=== PATIENT | male | born 1940 | race Caucasian/White ===

== ENCOUNTER 2018-08-19 09:10 | Emergency (ER) | payer MEDICARE, BC ==
[2018-08-19 09:34] VITALS: BP 118/69; PULSE 85; RESP 16; TEMP 97.7; O2SAT 98; BMI 26.6
--- NOTE | 2018-08-19 15:22 | ED PDOC ---
Arrival/HPI - General Chief Complaint: Finger,Hand,&Wrist Time Seen by Provider: 08/19/18 09:27 Historian: Patient - History of Present Illness Narrative History of Present Illness (Text): 08/19/18 09:30 A 78 year old male with no significant past medical history includes presents to the emergency department complaining of right thumb pain for the past 1 week. Patient reports his skin around the nail became swollen and filled with fluid. Patient notes he is already on antibiotics prescribed by a friend who is a physician. Patient denies any fever, headache, dizziness, or any other complaints. PMD: Dr. Horn Time/Duration: 1 week Symptom Onset: Gradual Symptom Course: Unchanged Activities at Onset: Light Context: Home Past Medical History - Provider Review Nursing Documentation Reviewed: Yes - Cardiac Hx Cardiac Disorders: Yes Hx Hypertension: Yes - Pulmonary Hx Respiratory Disorders: No - Neurological Hx Neurological Disorder: No - HEENT Hx HEENT Disorder: No - Renal Hx Renal Disorder: No - Endocrine/Metabolic Hx Endocrine Disorders: No - Hematological/Oncological Hx Blood Disorders: No - Integumentary Hx Dermatological Disorder: No - Musculoskeletal/Rheumatological Hx Musculoskeletal Disorders: No - Gastrointestinal Hx Gastrointestinal Disorders: No - Genitourinary/Gynecological Hx Genitourinary Disorders: No - Psychiatric Hx Psychophysiologic Disorder: No Hx Substance Use: No - Surgical History Hx Appendectomy: Yes - Anesthesia Hx Anesthesia: No Family/Social History - Physician Review Nursing Documentation Reviewed: Yes Family/Social History: No Known Family HX Smoking Status: Light Smoker < 10 Cigarettes Daily Hx Alcohol Use: No Hx Substance Use: No Allergies/Home Meds Allergies/Adverse Reactions: Allergies No Known Allergies Allergy (Verified 08/19/18 09:27) Review of Systems - Physician Review All systems were reviewed & negative as marked: Yes - Review of Systems Constitutional: absent: Fevers Musculoskeletal: Other (right thumb pain) Neurological: absent: Headache, Dizziness Physical Exam Vital Signs Reviewed: Yes Vital Signs Temp Pulse Resp BP Pulse Ox 08/19/18 09:23 97.7 F 85 16 118/69 98 Temperature: Afebrile Blood Pressure: Normal Pulse: Regular Respiratory Rate: Normal Appearance: Positive for: Well-Appearing, Non-Toxic Pain Distress: Mild Mental Status: Positive for: Alert and Oriented X 3 - Systems Exam Head: Present: Atraumatic, Normocephalic Pupils: Present: PERRL Extroacular Muscles: Present: EOMI Conjunctiva: Present: Normal Respiratory/Chest: Present: Clear to Auscultation, Good Air Exchange. No: Respiratory Distress, Accessory Muscle Use Cardiovascular: Present: Regular Rate and Rhythm, Normal S1, S2. No: Murmurs Upper Extremity: Present: Other (small abcess noted to right thumb by nailbed). No: Cyanosis, Edema Neurological: Present: GCS=15, CN II-XII Intact, Speech Normal Skin: Present: Warm, Dry, Normal Color. No: Rashes Psychiatric: Present: Alert, Oriented x 3, Normal Insight, Normal Concentration Medical Decision Making ED Course and Treatment: 08/19/18 09:30 Impression: 78 year old male presenting to the emergency room complaining of right thumb pain. Plan: -- Incision & Drainage -- Reassess and disposition Progress Notes: 08/19/18 09:35 Procedure: Incision & Drainage Performed by the emergency provider Indication: Abscess Location: right thumb Preparation: The area was prepped and draped in the usual sterile fashion and was cleansed. Procedure: The most fluctuant portion of the abscess was incised with a #11 sc alpel. Approximately 1/2 cc of puss was obtained. The abscess was packed. A dressing was applied by the RN. Post-Procedure: On exam the abscess is notably less fluctuant. The patient tolerated the procedure well, and there were no complications. - Scribe Statement The provider has reviewed the documentation as recorded by the Yunior Bacon All medical record entries made by the Scribe were at my direction and personally dictated by me. I have reviewed the chart and agree that the record accurately reflects my personal performance of the history, physical exam, medical decision making, and the department course for this patient. I have also personally directed, reviewed, and agree with the discharge instructions and disposition. Disposition/Present on Arrival - Present on Arrival Any Indicators Present on Arrival: Yes History of DVT/PE: No History of Uncontrolled Diabetes: No Urinary Catheter: No History of Decub. Ulcer: No History Surgical Site Infection Following: None - Disposition Have Diagnosis and Disposition been Completed?: No Diagnosis: Abscess of finger Disposition: HOME/ ROUTINE Disposition Time: 09:40 Condition: GOOD Discharge Instructions (ExitCare): Skin Abscess Additional Instructions: MAGGI WILCOX, thank you for letting us take care of you today. The emergency medical care you received today was directed at your acute symptoms. If you were prescribed any medication, please fill it and take as directed. It may take several days for your symptoms to resolve. Return to the Emergency Department if your symptoms worsen, do not improve, or if you have any other problems. Please contact your doctor or call one of the physicians/clinics you have been referred to that are listed on the Patient Visit Information form that is included in your discharge packet. Bring any paperwork you were given at discharge with you along with any medications you are taking to your follow up visit. Our treatment cannot replace ongoing medical care by a primary care provider outside of the emergency department. Thank you for allowing the [facility] team to be part of your care today. Follow up with your primary care doctor early next week for re-evaluation and further management. Prescriptions: Ibuprofen [Motrin] 600 mg PO Q6 PRN #20 tab PRN Reason: Pain, Moderate (4-7) Sulfamethoxazole/Trimethoprim [Bactrim DS 800 mg-160 mg] 1 tab PO BID #14 tab Forms: [employer] (Afghan)
== END 2018-08-19 09:52 | disposition home or self-care (01) ==
LOC: ED 09:10
DX: L02.511 Cutaneous abscess of right hand (principal)

== ENCOUNTER 2018-08-24 19:08 | Inpatient (IN) | payer MEDICARE, BC ==
[2018-08-24 19:08] VITALS: BMI 26.6
--- NOTE | 2018-08-24 19:34 | ED PDOC ---
Arrival/HPI - General Chief Complaint: Chest Pain Time Seen by Provider: 08/24/18 19:16 Historian: Patient - History of Present Illness Narrative History of Present Illness (Text): 08/24/18 19:30 Pt is a 78 yo male with a PMH of PR x3 and cardiac stent, hypertension, hyperlipidemia who presents to the ED complaining of 10/10 stabbing left sided chest pain which radiates down his left arm and started 1 hour ago. Pt tried nitro and ASA at home but it did not help. Reports nausea, vomiting, and shortness of breath. Denies diaphoresis. Time/Duration: 1 hour Symptom Onset: Sudden Symptom Course: Worsening Quality: Stabbing Severity Level: 10 Activities at Onset: Rest Context: Sitting Past Medical History - Infectious Disease Hx of Infectious Diseases: None - Cardiac Hx Cardiac Disorders: Yes Hx Hypertension: Yes - Pulmonary Hx Respiratory Disorders: No - Neurological Hx Neurological Disorder: No - HEENT Hx HEENT Disorder: No - Renal Hx Renal Disorder: No - Endocrine/Metabolic Hx Endocrine Disorders: No - Hematological/Oncological Hx Blood Disorders: No - Integumentary Hx Dermatological Disorder: No - Musculoskeletal/Rheumatological Hx Musculoskeletal Disorders: No - Gastrointestinal Hx Gastrointestinal Disorders: No - Genitourinary/Gynecological Hx Genitourinary Disorders: No - Psychiatric Hx Psychophysiologic Disorder: No Hx Substance Use: No - Surgical History Hx Appendectomy: Yes - Anesthesia Hx Anesthesia: No Family/Social History Family/Social History: No Known Family HX Smoking Status: Light Smoker < 10 Cigarettes Daily Hx Alcohol Use: No Hx Substance Use: No Allergies/Home Meds Allergies/Adverse Reactions: Allergies No Known Allergies Allergy (Verified 08/19/18 09:27) Review of Systems - Review of Systems Constitutional: Normal Eyes: Normal ENT: Normal Respiratory: SOB Cardiovascular: Chest Pain Gastrointestinal: Normal Genitourinary Male: Normal Musculoskeletal: Normal Skin: Normal Neurological: Normal Endocrine: Normal Hemo/Lymphatic: Normal Psychiatric: Normal Physical Exam Vital Signs Reviewed: Yes Temperature: Afebrile Blood Pressure: Normal Pulse: Regular Respiratory Rate: Normal Appearance: Positive for: Well-Appearing Mental Status: Positive for: Alert and Oriented X 3 - Systems Exam Head: Present: Atraumatic, Normocephalic Pupils: Present: PERRL Extroacular Muscles: Present: EOMI Mouth: Present: Moist Mucous Membranes Neck: Present: Normal Range of Motion Respiratory/Chest: Present: Clear to Auscultation, Good Air Exchange. No: Respiratory Distress, Accessory Muscle Use Cardiovascular: Present: Regular Rate and Rhythm, Normal S1, S2, Other (chest pain is reproducible to palpation ) Abdomen: Present: Normal Bowel Sounds. No: Tenderness, Distention Upper Extremity: Present: Normal Inspection Lower Extremity: Present: Normal Inspection Neurological: Present: GCS=15, CN II-XII Intact Skin: Present: Warm, Dry, Normal Color Psychiatric: Present: Alert, Oriented x 3 Medical Decision Making ED Course and Treatment: 08/24/18 19:37 CBC CMP Troponin EKG CXR 08/24/18 20:07 signed pt out to night team Pt seen, examined, assessment and plan discussed with Dr Monica Chery PGY1 - RAD Interpretation Radiology Orders: 08/24/18 19:28 CXR [CHEST TWO VIEWS (PA/LAT)] [RAD] Stat - PA / SEEING EYE DOG TRAINER / Resident Statement MD/DO has reviewed & agrees with the documentation as recorded. MD/DO has examined the patient and agrees with the treatment plan. Disposition/Present on Arrival - Present on Arrival Any Indicators Present on Arrival: No History of DVT/PE: No History of Uncontrolled Diabetes: No Urinary Catheter: No History of Decub. Ulcer: No History Surgical Site Infection Following: None - Disposition Have Diagnosis and Disposition been Completed?: Yes Diagnosis: Chest pain Disposition Time: 20:08 Patient Plan: Admission Condition: FAIR Discharge Instructions (ExitCare): Chest Pain (ED) Forms: [employer] (Mongolian)
[2018-08-24 20:34] LABS: BASO # 0.01 K/mm3 (0.0-2.0); BASO % 0.2 % (0.0-3.0); EOS # 0.1 (0.0-0.7); EOS % 1.2 % (1.5-5.0); HEMOGLOBIN 13.9 g/dL (14.0-18.0); LYMPH % 30.7 % (22.0-35.0); MEAN CELL VOLUME 84.4 fl (80.0-105.0); MEAN CORPUSCULAR HEMOGLOBIN 26.7 pg (25.0-35.0); MEAN CORPUSCULAR HGB CONC 31.7 g/dl (31.0-37.0); MONO # 0.3 (0.1-0.6); MONO % 5.3 % (1.0-6.0); RBC 5.2 10^6/uL (3.5-6.1); RED CELL DISTRIBUTION WIDTH 14.5 % (11.5-14.5); WHITE BLOOD COUNT 6.4 10^3/uL (4.5-11.0)
[2018-08-24 22:11] LABS: ALB/GLOB RATIO 1.2 (1.1-1.8); ALBUMIN 3.5 g/dL (3.0-4.8); ALT/SGPT 31 U/L (7-56); AST/SGOT 23 U/L (17-59); BLOOD UREA NITROGEN 15 mg/dL (7-21); CALCIUM 8.6 mg/dL (8.4-10.5); GFR NON-AFRICAN AMERICAN > 60
[2018-08-24 22:22] LABS: B-TYPE NATRIURETIC PEPTIDE 68.8 pg/mL (0-450); TROPONIN I 0.04 ng/mL
--- NOTE | 2018-08-24 22:41 | CP.PCM.HP ---
<Percy Nj - Last Filed: 08/25/18 02:10> History of Present Illness - History of Present Illness History of Present Illness: Percy Nj, PGY1 H&P for Dr. Garibay cc: "left sided cp" Patient is a 78 yo male with a PMH of CO x3 and cardiac stent (placed in 2008), hypertension, hyperlipidemia who presents to the ED complaining of sharp, stabbing left sided chest pain which radiates down his left arm and jaw which started earlier in the evening while he was watching television. Patient states that it felt like the time he had a heart attack. He took nitro and aspirin at home and it did not help him. Patient denies sick contacts or recent travel history. He said he had a diagnostic cath done before at [facility] with Dr. Muniz however he said "only 40% of the vessel was blocked and they didn't want to do anything." Patiet denies denies fever, chills, sob, n/v/d, bowel/bladder changes. No previous inpatient admissions to [facility]. A full 12 point ROS was conducted and unremarkable except as stated above. PMD: Dr. Horn PMHx: CO x3 and cardiac stent (placed in 2008), hypertension, hyperlipidemia PSHx: appendectomy, cataracts Meds: ASA 81mg daily, Lipitor 20mg daily Allergies: NKDA SocialHx: smoker (5 cigarettes a day x55 years), denies EtOH/drug use. FamHx: non-contributory Present on Admission - Present on Admission Any Indicators Present on Admission: No Review of Systems - Review of Systems All systems: reviewed and no additional remarkable complaints except (as per HPI) Past Patient History - Infectious Disease Hx of Infectious Diseases: None - Past Social History Smoking Status: Light Smoker < 10 Cigarettes Daily - CARDIAC Hx Cardiac Disorders: Yes Hx Hypertension: Yes - PULMONARY Hx Respiratory Disorders: No - NEUROLOGICAL Hx Neurological Disorder: No - HEENT Hx HEENT Problems: No - RENAL Hx Chronic Kidney Disease: No - ENDOCRINE/METABOLIC Hx Endocrine Disorders: No - HEMATOLOGICAL/ONCOLOGICAL Hx Blood Disorders: No - INTEGUMENTARY Hx Dermatological Problems: No - MUSCULOSKELETAL/RHEUMATOLOGICAL Hx Musculoskeletal Disorders: No - GASTROINTESTINAL Hx Gastrointestinal Disorders: No - GENITOURINARY/GYNECOLOGICAL Hx Genitourinary Disorders: No - PSYCHIATRIC Hx Psychophysiologic Disorder: No Hx Substance Use: No - SURGICAL HISTORY Hx Appendectomy: Yes - ANESTHESIA Hx Anesthesia: No Meds Allergies/Adverse Reactions: Allergies Allergy/AdvReac Type Severity Reaction Status Date / Time No Known Allergies Allergy Verified 08/19/18 09:27 Physical Exam - Constitutional Appears: No Acute Distress - Head Exam Head Exam: ATRAUMATIC, NORMAL INSPECTION, NORMOCEPHALIC - Eye Exam Eye Exam: EOMI, Normal appearance - ENT Exam ENT Exam: Mucous Membranes Dry - Respiratory Exam Respiratory Exam: Clear to Auscultation Bilateral. absent: Chest Wall Tenderness, Rales, Rhonchi, Wheezes - Cardiovascular Exam Cardiovascular Exam: RRR, +S1, +S2 - GI/Abdominal Exam GI & Abdominal Exam: Normal Bowel Sounds, Soft. absent: Guarding, Rebound, Rigid, Tenderness - Extremities Exam Extremities exam: Positive for: normal capillary refill, normal inspection, pedal pulses present - Back Exam Back exam: NORMAL INSPECTION - Neurological Exam Neurological exam: Alert, CN II-XII Intact, Oriented x3, Reflexes Normal Results - Labs Result Diagrams: 08/24/18 20:24 08/24/18 21:52 Labs: Laboratory Results - last 24 hr 08/24/18 08/24/18 20:24 21:52 WBC 6.4 RBC 5.20 Hgb 13.9 L Hct 43.9 MCV 84.4 MCH 26.7 MCHC 31.7 RDW 14.5 Plt Count 194 MPV 11.0 Neut % (Auto) 62.6 Lymph % (Auto) 30.7 [place] % (Auto) 5.3 Eos % (Auto) 1.2 L Baso % (Auto) 0.2 Lymph # (Auto) 2.0 [place] # (Auto) 0.3 Eos # (Auto) 0.1 Baso # (Auto) 0.01 Absolute Neuts (auto) 4.02 Sodium 130 L Potassium 3.7 Chloride 100 Carbon Dioxide 24 Anion Gap 10 BUN 15 Creatinine 0.8 Est GFR ( Amer) > 60 Est GFR (Non-Af Amer) > 60 Random Glucose 106 Calcium 8.6 Total Bilirubin 0.2 AST 23 ALT 31 Alkaline Phosphatase 71 Troponin I 0.04 NT-Pro-B Natriuret Pep 68.8 Total Protein 6.4 Albumin 3.5 Globulin 2.9 Albumin/Globulin Ratio 1.2 Assessment & Plan - Assessment and Plan (Free Text) Assessment: Patient is a 78 yo male with a PMH of CO x3 and cardiac stent (placed in 2008), hypertension, hyperlipidemia who presents to the ED complaining of sharp, stabbing left sided chest pain which radiates down his left arm and jaw which started earlier in the evening while he was watching television. Plan: Chest Pain 2/2 NSTEMI - Initial troponin was .04; trend serial trops q6 - TSH, Lipid Panel, Hgb A1c - Serial EKG in morning - ASA 325mg and Plavix 300mg loading dose - ASA 81mg daily and Plavix 75mg daily - Beta-pricila, Metoprolol Succinate 12.5mg PO daily with holding parameters - Statin, Atorvastatin 80mg HS - Lovenox SC 1mg/kg q12 - nitroglycerin patch - NPO - Cardiology Consult (Dr. Muniz) - Patient has high cardiac risk factors given history - CXR: no active disease - EKG: NSR, no acute ST/T wave changes Hypovolemic Hyponatremia - Patient dry on exam - Na 130 on admission - urine sodium, serum osmolality, urine osmolality - Will administer IVF NS @ 100 cc/hr x1 bag HLD - Atorvastatin 80mg HS HTN - Metoprolol succinate 12.5mg PO daily ppx: - lovenox Diet: NPO Dispo: Will admit patient to tele. Pending troponins and cardiac recs. Case was discussed and reviewed with Attending Physician, Dr. Garibay <Albert Garibay - Last Filed: 08/26/18 06:44> Results - Vital Signs Recent Vital Signs: Last Vital Signs Temp 98.5 F 08/26/18 05:41 Pulse 67 08/26/18 05:41 Resp 18 08/26/18 05:41 BP 101/58 L 08/25/18 23:16 Pulse Ox 97 08/26/18 05:41 - Labs Result Diagrams: 08/25/18 06:30 08/25/18 06:30 Labs: Laboratory Results - last 24 hr 08/24/18 08/25/18 08/25/18 22:45 06:30 06:30 WBC 5.1 D RBC 5.39 Hgb 14.4 Hct 45.3 MCV 84.0 MCH 26.7 MCHC 31.8 RDW 14.5 Plt Count 196 MPV 11.8 H Sodium 140 Potassium 3.9 Chloride 106 Carbon Dioxide 26 Anion Gap 12 BUN 11 Creatinine 0.7 L Est GFR ( Amer) > 60 Est GFR (Non-Af Amer) > 60 Random Glucose 87 Hemoglobin A1c 6.2 Calcium 9.2 Phosphorus 3.5 Magnesium 2.1 Total Bilirubin 0.7 AST 43 ALT 34 Alkaline Phosphatase 78 Troponin I 3.63 H* D Total Protein 7.0 Albumin 3.8 Globulin 3.2 Albumin/Globulin Ratio 1.2 Urine Osmolality Ur Random Sodium 08/25/18 07:00 WBC RBC Hgb Hct MCV MCH MCHC RDW Plt Count MPV Sodium Potassium Chloride Carbon Dioxide Anion Gap BUN Creatinine Est GFR ( Amer) Est GFR (Non-Af Amer) Random Glucose Hemoglobin A1c Calcium Phosphorus Magnesium Total Bilirubin AST ALT Alkaline Phosphatase Troponin I Total Protein Albumin Globulin Albumin/Globulin Ratio Urine Osmolality 135 L Ur Random Sodium 13 Attending/Attestation - Attestation I have personally seen and examined this patient.: Yes I have fully participated in the care of the patient.: Yes I have reviewed all pertinent clinical information: Yes Notes (Text): 08/26/18 06:44 Seen and examined. Discussed with resident. A&P as above
[2018-08-24 22:59] LABS: HDL CHOLESTEROL 34 mg/dL (29-60)
[2018-08-24 23:09] LABS: LDL CHOLESTEROL 102 mg/dL (0-129)
[2018-08-24] MEDS ORDERED: Sodium Chloride 0.9% 1,000 ML IV SCH (23:45)
[2018-08-25] MEDS: Enoxaparin 60 mg Syringe SC SCH ×3 (00:30→22:47)
[2018-08-25 07:02] LABS: HEMOGLOBIN 14.4 g/dL (14.0-18.0); MEAN CORPUSCULAR HEMOGLOBIN 26.7 pg (25.0-35.0); MEAN CORPUSCULAR HGB CONC 31.8 g/dl (31.0-37.0); MEAN PLATELET VOLUME 11.8 fl (7.0-11.0); RBC 5.39 10^6/uL (3.5-6.1); RED CELL DISTRIBUTION WIDTH 14.5 % (11.5-14.5); WHITE BLOOD COUNT 5.1 10^3/uL (4.5-11.0)
[2018-08-25 07:21] LABS: ALB/GLOB RATIO 1.2 (1.1-1.8); ALBUMIN 3.8 g/dL (3.0-4.8); ALT/SGPT 34 U/L (7-56); AST/SGOT 43 U/L (17-59); BLOOD UREA NITROGEN 11 mg/dL (7-21); CALCIUM 9.2 mg/dL (8.4-10.5); GFR NON-AFRICAN AMERICAN > 60
[2018-08-25 08:15] LABS: TROPONIN I 3.63 ng/mL
[2018-08-25 08:17] LABS: OSMOLALITY,URINE 135 mosm/kg (300-1000)
[2018-08-25] MEDS: Metoprolol Succinate 25 mg XL Tab PO SCH (08:39)
--- NOTE | 2018-08-25 10:49 | RAD ---
Date of service: 08/24/2018 HISTORY: Chest pain COMPARISON: No prior. TECHNIQUE: Chest PA and lateral FINDINGS: LINES AND TUBES: None. LUNG AND PLEURA: The lungs are well inflated and clear. No pleural effusion or pneumothorax. HEART AND MEDIASTINUM: The heart is not enlarged. There is unfolding of the aorta. There are aortic atherosclerotic calcifications present. The hilar and mediastinal contours are within normal limits. SKELETAL STRUCTURES: There is diffuse bone demineralization and multilevel degenerative changes in the spine. VISUALIZED UPPER ABDOMEN: Normal. OTHER FINDINGS: None. IMPRESSION: No active pulmonary disease.
--- NOTE | 2018-08-25 11:28 | CP.PCM.APN ---
Subjective - Date & Time of Evaluation Date of Evaluation: 08/25/18 Time of Evaluation: 09:25 - Subjective Subjective: pt seen and examined at [facility], pt reports feeling better, stats hand worker wants to monitor him , denies cp at this time, pt in NAD Review of Systems - Review of Systems All systems: reviewed and no additional remarkable complaints except Objective - Vital Signs/Intake and Output Vital Signs (last 24 hours): Temp Pulse Resp BP Pulse Ox 98 F 61 20 111/68 97 08/25/18 06:00 08/25/18 08:39 08/25/18 06:00 08/25/18 10:03 08/25/18 06:00 Intake and Output: 08/25/18 08/25/18 06:59 18:59 Intake Total 565 Output Total 0 Balance 565 - Medications Medications: Current Medications Amlodipine Besylate (Norvasc) 2.5 mg PO DAILY [facility] Last Admin: 08/25/18 10:03 Dose: 2.5 mg Aspirin (Ecotrin) 81 mg PO DAILY [facility] Last Admin: 08/25/18 10:03 Dose: 81 mg Atorvastatin Calcium (Lipitor) 80 mg PO HS [facility] Last Admin: 08/25/18 00:21 Dose: 80 mg Enoxaparin Sodium (Lovenox) 60 mg SC Q12H [facility]; Protocol Last Admin: 08/25/18 00:30 Dose: 60 mg Isosorbide Mononitrate (Imdur Er) 30 mg PO DAILY [facility] Last Admin: 08/25/18 10:03 Dose: 30 mg Metoprolol Succinate (Toprol Xl) 12.5 mg PO K [facility] Last Admin: 08/25/18 08:39 Dose: 12.5 mg - Labs Labs: 08/25/18 06:30 08/25/18 06:30 - Head Exam Head Exam: NORMAL INSPECTION, NORMOCEPHALIC - Eye Exam Eye Exam: Normal appearance - Neck Exam Neck Exam: Full ROM - Respiratory Exam Respiratory Exam: Clear to Ausculation Bilateral - Cardiovascular Exam Cardiovascular Exam: +S1, +S2 - GI/Abdominal Exam GI & Abdominal Exam: Soft, Normal Bowel Sounds - Neurological Exam Neurological Exam: Alert, Awake Additional comments: HARRIS - Psychiatric Exam Psychiatric exam: Normal Affect, Normal Mood - Skin Skin Exam: Dry, Intact Assessment and Plan - Assessment and Plan (Free Text) Plan: ITS Impressions Chest X-Ray 08/24/18 19:28 IMPRESSION: No active pulmonary disease. Cardiology / EKG Studies 08/24/18 19:17 EKG [ELECTROCARDIOGRAM] Stat Comment: Reason For Exam: CHEST PAIN 08/25/18 09:55 EKG [ELECTROCARDIOGRAM] Stat Comment: Reason For Exam: elevated troponions A/P 78 yr old male with pmh sig fro [place] with 3 stetns, htn, hld who was adimtted with c/o let side cp with radiation to left arm , trop elevated at 1.94 and 3.63 now cardiology consultation for further mgmt. pt on Lovenox, asa, plavix , BBlocker and statin therapy will follow cardiology recs BPCI/TIC - BPCIA/TIC Educated pt/family on BPCIA/CIR/Med to Bed Programs: N/A Flyers given, including [facility] Beneficiary letter: N/A Pt/family verbalized understanding & agreed to program: N/A (pt in obs status)
--- NOTE | 2018-08-25 11:51 | CARD ---
APPROVED REPORT Date of service: 08/24/2018 EKG Measurement Heart [id number] <Conclusion> Normal sinus rhythm Normal Electrocardiogram
[2018-08-25 13:06] VITALS: RESP 18
--- NOTE | 2018-08-25 19:16 | CARD ---
APPROVED REPORT Date of service: 08/25/2018 EKG Measurement Heart [id number] <Conclusion> Normal sinus rhythm Normal ECG
[2018-08-25] MEDS ORDERED: Nitroglycerin 0.2 mg/hr Top Patch TD SCH (23:30)
[2018-08-26 05:42] VITALS: TEMP 98.5; O2SAT 97
--- NOTE | 2018-08-26 06:12 | CON ---
DATE: 08/25/2018 REQUESTING PHYSICIAN: Maddi Barton MD REASON FOR CONSULTATION: Chest pain. HISTORY OF PRESENT ILLNESS: This is a 78-year-old man with known coronary artery disease, status post remote PCI, admitted with complaints of stabbing chest pain yesterday. He presents to the emergency room and was given sublingual nitroglycerin with no improvement. He is currently seen lying in bed on telemetry. He is currently comfortable. His initial troponin was 0.04, sirena to 1.94 with a followup of 3.63. The patient was admitted with chest pain last month and underwent cardiac catheterization. At that time, he was found to have a patent circumflex artery stent. He had mild diffuse disease elsewhere with evidence of severe disease in several small diagonal branches. Medical therapy was advised. He refused to take aspirin as he felt that it caused an ulcer many years ago. He also did not take a beta-pricila as prescribed as he feels his blood pressure and heart rate are too low at times. He denies any lightheadedness or syncope. PAST MEDICAL HISTORY: His past history is notable for the problems mentioned above. He does have a history of hyperlipidemia and he continues to smoke. MEDICATIONS AT HOME: None. SOCIAL HISTORY: He states he continues to smoke less than a pack per day. He denies alcohol use. FAMILY HISTORY: Both parents are from age-related illness. REVIEW OF SYSTEMS: A 12-point review of systems is otherwise unremarkable. He denies any lightheadedness. PHYSICAL EXAMINATION: GENERAL: He is an elderly man who appears comfortable at the present time. VITAL SIGNS: His blood pressure is 110/60 with pulse of 62, in sinus; respirations are 14; he is afebrile. HEENT: Normocephalic, atraumatic. NECK: Supple. No JVD noted. CHEST: Few scattered rhonchi heard. HEART: PMI in normal position. No pathological murmurs or gallops are noted. ABDOMEN: Soft and nontender with normoactive bowel sounds. EXTREMITIES: No clubbing, cyanosis, or edema. SKIN: Warm and dry. PSYCHIATRIC: Normal mood and affect. NEUROLOGIC: Alert and oriented x3. No gross motor or sensory deficits notable. DIAGNOSTIC DATA: White count is 6.4, hemoglobin and hematocrit 13.9 and 43.9 with platelet count of 194,000. Sodium was initially 130, repeat is 140; potassium 3.7. Hemoglobin A1c 6.2%. BUN and creatinine 15 and 0.8. Troponin as previously mentioned. Electrocardiogram reveals sinus rhythm with no significant ST-T abnormalities. Chest x-ray reveals normal cardiac silhouette with clear lung terrazas. IMPRESSION: 1. Chest pain with elevated troponin. I suspect this is due to diagonal side branch disease, especially given the absence of EKG changes. 2. Coronary artery disease, status post remote percutaneous coronary intervention of left circumflex, stent patent at catheterization last month. 3. Persistent tobacco abuse. 4. Noncompliance with medical regimen. RECOMMENDATIONS: Telemetry monitoring should continue. A followup troponin will be planned for the morning. Repeat EKG for chest pain will be performed as well. Low-dose nitrates and amlodipine will be added in an attempt to reduce his potential for angina or myocardial injury due to his diffusely diseased diagonal branches. The need for smoking abstinence was strongly emphasized to him. A repeat troponin in the morning is planned. Thank you for this consultation. I will be happy to follow along as needed. Maksim Muniz MD
[2018-08-26 07:13] LABS: HEMOGLOBIN 12.8 g/dL (14.0-18.0); MEAN CORPUSCULAR HEMOGLOBIN 26.2 pg (25.0-35.0); MEAN CORPUSCULAR HGB CONC 31.2 g/dl (31.0-37.0); MEAN PLATELET VOLUME 11.8 fl (7.0-11.0); RBC 4.88 10^6/uL (3.5-6.1); RED CELL DISTRIBUTION WIDTH 14.5 % (11.5-14.5); WHITE BLOOD COUNT 5.4 10^3/uL (4.5-11.0)
[2018-08-26 08:08] LABS: TROPONIN I 1.69 ng/mL
[2018-08-26 08:24] LABS: ALB/GLOB RATIO 1.1 (1.1-1.8); ALBUMIN 3.4 g/dL (3.0-4.8); ALT/SGPT 28 U/L (7-56); AST/SGOT 38 U/L (17-59); BLOOD UREA NITROGEN 13 mg/dL (7-21); CALCIUM 8.6 mg/dL (8.4-10.5); GFR NON-AFRICAN AMERICAN > 60
[2018-08-26] MEDS: Metoprolol Succinate 25 mg XL Tab PO SCH (08:57)
[2018-08-26 08:58] VITALS: BP 147/71; PULSE 82
--- NOTE | 2018-08-26 11:02 | CP.PCM.DIS ---
<Stephane Carrasquillo - Last Filed: 08/26/18 14:38> Provider - Provider Date of Admission: 08/25/18 15:19 Attending physician: Dontae Dunlap MD Primary care physician: Deny Horn MD Consults: 08/24/18 23:28 Physician Consult Routine Comment: Consulting Provider: Maksim Muniz Consulting Physician: Maksim Muniz Reason for Consult: NSTEMI 08/25/18 01:37 Transition In Care/Readmission Reduction Routine Comment: Physician Instructions: Reason For Exam: met criteria Time Spent in preparation of Discharge (in minutes): 45 Hospital Course - Lab Results Lab Results: Most Recent Lab Values WBC 5.4 10^3/uL (4.5-11.0) 08/26/18 06:30 RBC 4.88 10^6/uL (3.5-6.1) 08/26/18 06:30 Hgb 12.8 g/dL (14.0-18.0) L 08/26/18 06:30 Hct 41.0 % (42.0-52.0) L 08/26/18 06:30 MCV 84.0 fl (80.0-105.0) 08/26/18 06:30 MCH 26.2 pg (25.0-35.0) 08/26/18 06:30 MCHC 31.2 g/dl (31.0-37.0) 08/26/18 06:30 RDW 14.5 % (11.5-14.5) 08/26/18 06:30 Plt Count 184 10^3/uL (120.0-450.0) 08/26/18 06:30 MPV 11.8 fl (7.0-11.0) H 08/26/18 06:30 Neut % (Auto) 62.6 % (50.0-68.0) 08/24/18 20:24 Lymph % (Auto) 30.7 % (22.0-35.0) 08/24/18 20:24 [place] % (Auto) 5.3 % (1.0-6.0) 08/24/18 20:24 Eos % (Auto) 1.2 % (1.5-5.0) L 08/24/18 20:24 Baso % (Auto) 0.2 % (0.0-3.0) 08/24/18 20:24 Lymph # (Auto) 2.0 (1.2-3.4) 08/24/18 20:24 [place] # (Auto) 0.3 (0.1-0.6) 08/24/18 20:24 Eos # (Auto) 0.1 (0.0-0.7) 08/24/18 20:24 Baso # (Auto) 0.01 K/mm3 (0.0-2.0) 08/24/18 20:24 Absolute Neuts (auto) 4.02 (1.4-6.5) 08/24/18 20:24 Sodium 137 mmol/L (132-148) 08/26/18 06:30 Potassium 4.3 mmol/L (3.6-5.0) 08/26/18 06:30 Chloride 107 mmol/L (98-107) 08/26/18 06:30 Carbon Dioxide 25 mmol/L (21-33) 08/26/18 06:30 Anion Gap 10 (10-20) 08/26/18 06:30 BUN 13 mg/dL (7-21) 08/26/18 06:30 Creatinine 0.8 mg/dl (0.8-1.5) 08/26/18 06:30 Est GFR ( Amer) > 60 08/26/18 06:30 Est GFR (Non-Af Amer) > 60 08/26/18 06:30 Random Glucose 89 mg/dL (70-110) 08/26/18 06:30 Hemoglobin A1c 6.2 % (4.2-6.5) 08/24/18 22:45 Serum Osmolality 287 mosm/kg (272-300) 08/25/18 02:30 Calcium 8.6 mg/dL (8.4-10.5) 08/26/18 06:30 Phosphorus 3.4 mg/dL (2.5-4.5) 08/26/18 06:30 Magnesium 2.1 mg/dL (1.7-2.2) 08/26/18 06:30 Total Bilirubin 0.8 mg/dL (0.2-1.3) 08/26/18 06:30 AST 38 U/L (17-59) 08/26/18 06:30 ALT 28 U/L (7-56) 08/26/18 06:30 Alkaline Phosphatase 67 U/L (38-126) 08/26/18 06:30 Troponin I 1.69 ng/mL H* D 08/26/18 06:30 NT-Pro-B Natriuret Pep 68.8 pg/mL (0-450) 08/24/18 21:52 Total Protein 6.4 g/dL (5.8-8.3) 08/26/18 06:30 Albumin 3.4 g/dL (3.0-4.8) 08/26/18 06:30 Globulin 3.0 gm/dL 08/26/18 06:30 Albumin/Globulin Ratio 1.1 (1.1-1.8) 08/26/18 06:30 Triglycerides 121 mg/dL (35-160) 08/24/18 22:45 Cholesterol 161 mg/dL (130-200) 08/24/18 22:45 LDL Cholesterol Direct 102 mg/dL (0-129) 08/24/18 22:45 HDL Cholesterol 34 mg/dL (29-60) 08/24/18 22:45 TSH 3rd Generation 0.83 mIU/mL (0.46-4.68) 08/24/18 22:45 Urine Osmolality 135 mosm/kg (300-1000) L 08/25/18 07:00 Ur Random Sodium 13 meq/L 08/25/18 07:00 - Hospital Course Hospital Course: 78 yo male with a PMH of CO x3 and cardiac stent (placed in 2008), hypertension, hyperlipidemia who presents to the ED complaining of sharp, stabbing left sided chest pain. Patient has high cardiac risk factors given history, admitted for chest pain r/o ACS. EKG: NSR, no acute ST/T wave changes. CXR: no active disease. ASA, lipitor, metoprolol, lovenox, nitroglycerine patch initiated. Trops intially 0.04 and continue to rise up to 3.63 Cariologist, Dr Porras consulted and started the patient on plavix, imdur, amlodipine. Patient noted to undergo cardiac cath last month with diffuse diagonal side branch disease with no stents placed. Patient found to have hyponatremia that responded to IVF NS. Patient trop trended down to 1.69, patient is asymptomatic with no chest pain, he is hemodynamically stable and clinically optimized for discharge home today. Patient is non compliant with his cardiac medications. He was counseled on compliance to his medical regimen. Additional discharge instructions as below. Discharge Exam - Head Exam Head Exam: NORMAL INSPECTION, NORMOCEPHALIC - Eye Exam Eye Exam: EOMI, Normal appearance, PERRL Pupil Exam: NORMAL ACCOMODATION, PERRL - ENT Exam ENT Exam: Mucous Membranes Moist, Normal Exam - Neck Exam Neck exam: Normal Inspection - Respiratory Exam Respiratory Exam: Clear to PA & Lateral, NORMAL BREATHING PATTERN - Cardiovascular Exam Cardiovascular Exam: REGULAR RHYTHM, +S1, +S2 - GI/Abdominal Exam GI & Abdominal Exam: Normal Bowel Sounds, Soft - Extremities Exam Extremities exam: normal capillary refill, pedal pulses present - Back Exam Back exam: FULL ROM - Neurological Exam Neurological exam: Alert, CN II-XII Intact, Normal Gait, Oriented x3, Reflexes Normal - Psychiatric Exam Psychiatric exam: Normal Affect, Normal Mood - Skin Skin Exam: Dry, Intact, Normal Color, Warm Discharge Plan - Discharge Medications Prescriptions: amLODIPine [Norvasc] 2.5 mg PO DAILY #14 tab Aspirin [Ecotrin] 81 mg PO DAILY #14 tabec Atorvastatin [Lipitor] 40 mg PO HS #14 tab Clopidogrel [Plavix] 75 mg PO DAILY #14 tab Isosorbide Mononitrate ER [Imdur ER] 30 mg PO DAILY #14 tab Metoprolol Succinate XL [Toprol XL] 12.5 mg PO BRK #14 tab - Follow Up Plan Condition: FAIR Disposition: HOME/ ROUTINE Instructions: Chest Pain (GEN) Additional Instructions: -Please follow up with your PCP Dr Horn within 2-3 days of discharge -Please follow up with your production expediter Dr Porras with 5-7 days of discharge -Please take your medication aspirin, plavix, lipitor, toprol XL, imdur as prescribed -[place] to the emergency department if symptoms recur Referrals: Deny Horn MD [Primary Care Provider] - Maksim Muniz MD [Staff Provider] - <Dontae Dunlap - Last Filed: 08/26/18 14:58> Provider - Provider Date of Admission: 08/25/18 15:19 Attending physician: Dontae Dunlap MD Primary care physician: Deny Horn MD Consults: 08/24/18 23:28 Physician Consult Routine Comment: Consulting Provider: Maksim Muniz Consulting Physician: Maksim Muniz Reason for Consult: NSTEMI 08/25/18 01:37 Transition In Care/Readmission Reduction Routine Comment: Physician Instructions: Reason For Exam: met criteria Hospital Course - Lab Results Lab Results: Most Recent Lab Values WBC 5.4 10^3/uL (4.5-11.0) 08/26/18 06:30 RBC 4.88 10^6/uL (3.5-6.1) 08/26/18 06:30 Hgb 12.8 g/dL (14.0-18.0) L 08/26/18 06:30 Hct 41.0 % (42.0-52.0) L 08/26/18 06:30 MCV 84.0 fl (80.0-105.0) 08/26/18 06:30 MCH 26.2 pg (25.0-35.0) 08/26/18 06:30 MCHC 31.2 g/dl (31.0-37.0) 08/26/18 06:30 RDW 14.5 % (11.5-14.5) 08/26/18 06:30 Plt Count 184 10^3/uL (120.0-450.0) 08/26/18 06:30 MPV 11.8 fl (7.0-11.0) H 08/26/18 06:30 Neut % (Auto) 62.6 % (50.0-68.0) 08/24/18 20:24 Lymph % (Auto) 30.7 % (22.0-35.0) 08/24/18 20:24 [place] % (Auto) 5.3 % (1.0-6.0) 08/24/18 20:24 Eos % (Auto) 1.2 % (1.5-5.0) L 08/24/18 20:24 Baso % (Auto) 0.2 % (0.0-3.0) 08/24/18 20:24 Lymph # (Auto) 2.0 (1.2-3.4) 08/24/18 20:24 [place] # (Auto) 0.3 (0.1-0.6) 08/24/18 20:24 Eos # (Auto) 0.1 (0.0-0.7) 08/24/18 20:24 Baso # (Auto) 0.01 K/mm3 (0.0-2.0) 08/24/18 20:24 Absolute Neuts (auto) 4.02 (1.4-6.5) 08/24/18 20:24 Sodium 137 mmol/L (132-148) 08/26/18 06:30 Potassium 4.3 mmol/L (3.6-5.0) 08/26/18 06:30 Chloride 107 mmol/L (98-107) 08/26/18 06:30 Carbon Dioxide 25 mmol/L (21-33) 08/26/18 06:30 Anion Gap 10 (10-20) 08/26/18 06:30 BUN 13 mg/dL (7-21) 08/26/18 06:30 Creatinine 0.8 mg/dl (0.8-1.5) 08/26/18 06:30 Est GFR ( Amer) > 60 08/26/18 06:30 Est GFR (Non-Af Amer) > 60 08/26/18 06:30 Random Glucose 89 mg/dL (70-110) 08/26/18 06:30 Hemoglobin A1c 6.2 % (4.2-6.5) 08/24/18 22:45 Serum Osmolality 287 mosm/kg (272-300) 08/25/18 02:30 Calcium 8.6 mg/dL (8.4-10.5) 08/26/18 06:30 Phosphorus 3.4 mg/dL (2.5-4.5) 08/26/18 06:30 Magnesium 2.1 mg/dL (1.7-2.2) 08/26/18 06:30 Total Bilirubin 0.8 mg/dL (0.2-1.3) 08/26/18 06:30 AST 38 U/L (17-59) 08/26/18 06:30 ALT 28 U/L (7-56) 08/26/18 06:30 Alkaline Phosphatase 67 U/L (38-126) 08/26/18 06:30 Troponin I 1.69 ng/mL H* D 08/26/18 06:30 NT-Pro-B Natriuret Pep 68.8 pg/mL (0-450) 08/24/18 21:52 Total Protein 6.4 g/dL (5.8-8.3) 08/26/18 06:30 Albumin 3.4 g/dL (3.0-4.8) 08/26/18 06:30 Globulin 3.0 gm/dL 08/26/18 06:30 Albumin/Globulin Ratio 1.1 (1.1-1.8) 08/26/18 06:30 Triglycerides 121 mg/dL (35-160) 08/24/18 22:45 Cholesterol 161 mg/dL (130-200) 08/24/18 22:45 LDL Cholesterol Direct 102 mg/dL (0-129) 08/24/18 22:45 HDL Cholesterol 34 mg/dL (29-60) 08/24/18 22:45 TSH 3rd Generation 0.83 mIU/mL (0.46-4.68) 08/24/18 22:45 Urine Osmolality 135 mosm/kg (300-1000) L 08/25/18 07:00 Ur Random Sodium 13 meq/L 08/25/18 07:00 Attending/Attestation - Attestation I have personally seen and examined this patient.: Yes I have fully participated in the care of the patient.: Yes I have reviewed all pertinent clinical information, including history, physical exam and plan: Yes Notes (Text): 08/26/18 14:54 78 year old male with past medical history of CAD s/p stents, hypertension and dyslipidemia with history of noncompliance who presented with complaint of left sided chest pain. Patient reportedly had recent cath last month which showed diffuse diagonal side branch disease. Initial troponin was 0.04 but increased up to 3.63 yesterday. He was treated medically for NSTEMI with aspirin, plavix, lovenox, metoprol, statin and imdur. His chest pain resolved and his troponin began to trend down today. He was seen by cardiology who recommended outpatient follow up. Medication compliance and smoking cessation was discussed in detail with patient today. Patient is discharged home to follow up with pmd. Follow up with cardiology. Counselled on medication compliance. Counselled on smoking cessation. Dontae Dunlap MD Hospitalist.
--- NOTE | 2018-08-26 14:52 | PN ---
DATE: 08/26/2018 SUBJECTIVE: The patient is seen sitting in bed on telemetry. He is comfortable at the present time. He has had no further chest pain. His followup troponin this morning is 1.69. He has been ambulating with no symptoms. He is tolerating his current medications. MEDICATIONS: Include; aspirin once daily, Imdur 30 mg daily, Lipitor 80 mg daily, Lovenox, Norvasc 2.5 mg daily, Toprol XL 12.5 mg daily, Plavix 75 mg daily. PHYSICAL EXAMINATION: GENERAL: He is a elderly man who appears comfortable at rest. VITAL SIGNS: Blood pressure is 146/70 with a pulse of 82 and sinus, respirations are 14. He is afebrile. HEENT: No JVD. CHEST: Few scattered rhonchi. HEART: PMI normal position. No pathologic murmurs or gallops noted. ABDOMEN: Soft and nontender with normoactive bowel sounds. EXTREMITIES: No edema. DIAGNOSTIC DATA: Potassium 4.3, BUN and creatinine are 13 and 0.8. White count 5.4, hemoglobin and hematocrit 12.8 and 41.0 with platelet count 184,000. Troponin 1.69. Electrocardiogram reveals sinus rhythm, possible remote inferior wall myocardial infarction pattern and no acute ST-T changes. IMPRESSION: 1. Apparent small [id number] elation myocardial fraction possibly due to occlusion of a severe diffusely diseased diagonal side branch documented catheterization last month. Recent catheterization revealed patent circumflex stent. 2. History of tobacco abuse. 3. Rest of problems as noted. RECOMMENDATIONS: From a cardiac standpoint, he appears stable for discharge home at this time. He was encouraged to remain on his current medical regimen to reduce his risk of future cardiovascular events. Smoking abstinence was again emphasized to him. Outpatient followup will be arranged. Maksim Muniz MD
--- NOTE | 2018-08-26 20:48 | CARD ---
APPROVED REPORT Date of service: 08/26/2018 EKG Measurement Heart [id number] <Conclusion> Normal sinus rhythm Prominent left atrial forces Abnormal ECG
== END 2018-08-26 12:36 | disposition home or self-care (01) | DRG 281 ==
LOC: ED 19:08 → ERH 22:31 → 2RNO 08-25 00:57 → OBSVTOIN 08-25 15:19
PROVIDERS: ADMIT Internal Medicine; ATTEND Internal Medicine
DX: I21.4 Non-ST elevation (NSTEMI) myocardial infarction (principal); E87.1 Hypo-osmolality and hyponatremia; I25.10 Atherosclerotic heart disease of native coronary artery without angina pectoris; I10 Essential (primary) hypertension; E78.5 Hyperlipidemia, unspecified; F17.210 Nicotine dependence, cigarettes, uncomplicated; I25.2 Old myocardial infarction; Z95.5 Presence of coronary angioplasty implant and graft; Z90.49 Acquired absence of other specified parts of digestive tract; Z91.14 Patient's other noncompliance with medication regimen